=== PATIENT | male | born 2000 | race African-American/Black ===

== ENCOUNTER 2021-09-19 12:06 | Emergency (ER) | payer BC, OTHER ==
[~2021-09-19] VITALS: Ht 167.6 cm; Wt 59.0 kg
[2021-09-19 12:55] VITALS: BP 117/80
[2021-09-19] MEDS ORDERED: DOXYCYCLINE HYCLATE 100 MG TABLET PO ONE (13:45)
[2021-09-19] MEDS ORDERED: KETOROLAC 30 MG/ML VIAL. IM ONE (13:45)
[2021-09-19] MEDS ORDERED: cefTRIAXone IM 500 MG VIAL. IM ONE (13:45)
[2021-09-19 14:02] LABS: BACTERIA,URINE 0 /HPF (0-FEW); RBC,URINE 0 /HPF (0-2); WBC,URINE TNTC /HPF (0-4)
--- NOTE | 2021-09-19 14:16 | PHYS DOC ---
Past Medical History Past Surgical History: No Surgical History Smoking Status: Never Smoker Alcohol Use: Occasionally Social History Narrative: ecstasy General Adult EDM: Chief Complaint: WRIST PAIN HPI: HPI: Patient is a 21 year old male who presents with painful lump on his right wrist. Patient states the pain is mild to moderate and intermittently radiates proximally towards his elbow. He believes it is a ganglion cyst, as his grandfather had 1 in the past. Additionally, he reports a few day history of urethral discharge. Patient reports he has had 2 sexual partners in the past 6 months. In his most recent relationship, he has not been using barrier contraception and is concerned for STI. Patient denies genital rash, hematuria and testicular pain. Review of Systems: Review of Systems: ROS negative or noncontributory except as mentioned in HPI. Heart Score: C/O Chest Pain: No Current Medications: Current Medications Medications (Trade) Dose Ordered Sig/Shonna Start Time Stop Time Status Last Admin Dose Admin Ceftriaxone Sodium (Rocephin Im) 500 mg 1X ONCE 09/19/21 13:45 09/19/21 13:46 DC 09/19/21 13:56 500 MG Doxycycline Hyclate (Vibra-Tab) 100 mg 1X ONCE 09/19/21 13:45 09/19/21 13:46 DC 09/19/21 13:55 100 MG Ketorolac Tromethamine (Toradol 30mg Vial) 30 mg 1X ONCE 09/19/21 13:45 09/19/21 13:46 DC 09/19/21 13:56 30 MG Allergies: Allergies: Allergies Coded Allergies Type Severity Reaction Last Updated Verified No Known Drug Allergies 09/19/21 No Physical Exam: PE: Constitutional: Well developed, well nourished, no acute distress, non-toxic appearance. HENT: Normocephalic, atraumatic, bilateral external ears normal, oropharynx moist, no oral exudates, nose normal. Eyes: EOMI, conjunctiva normal, no discharge. Neck: Normal range of motion, no stridor. Skin: Warm, dry, no erythema, no rash. Back: No tenderness, no CVA tenderness. Extremities: Well-circumscribed, nonmobile firm lesion consistent with ganglion cyst noted to the dorsal aspect of the right wrist, cyst moves with wrist flexion and extension. Extremities otherwise no cyanosis, no clubbing, active ROM intact, no edema. Neurologic: Alert and oriented x4, normal motor function, normal sensory function, no focal deficits noted. Current Patient Data: Labs: Laboratory Tests Test 09/19/21 13:05 09/19/21 13:41 Urine Collection Type Unknown Urine Color (Auto) Yellow Urine Turbidity Hazy Urine pH (Auto) 6.5 (<5.0-8.0) Urine Specific [place] 1.032 (1.000-1.030) Urine Protein (Auto) 100 mg/dL (Negative) Urine Glucose (Auto)(UA) Negative mg/dL (Negative) Urine Ketones (Auto) Trace mg/dL (Negative) Urine Blood (Auto) Small (Negative) Urine Nitrite Negative (Negative) Urine Bilirubin (Auto) Negative (Negative) Urine Urobilinogen (Auto) 2 mg/dL (Normal) Urine Leukocyte Esterase (Auto) Large (Negative) Urine RBC 0 /HPF (0-2) Urine WBC Tntc /HPF (0-4) Urine Bacteria 0 /HPF (0-FEW) Urine Mucus Marked /LPF Treponema pallidum Antibody Nonreactive (Nonreactive) Vital Signs: Vital Signs Date Time Temp Pulse Resp B/P (MAP) Pulse Ox O2 Delivery O2 Flow Rate FiO2 09/19/21 12:55 98.0 82 16 117/80 (92) 100 Room Air 98.0 Course & Med Decision Making: Course & Med Decision Making Pertinent Labs and Imaging studies reviewed. (See chart for details) [employer] Disclaimer: [employer] Disclaimer: This electronic medical record was generated, in whole or in part, using a voice recognition dictation system. Departure Departure Impression: Primary Impression: Synovial cyst of right wrist Additional Impression: Sexually transmitted infection Disposition: HOME / SELF CARE / HOMELESS Condition: STABLE Referrals: NO PCP (PCP) DONYA KULKARNI Jr. DO Patient Instructions: Ganglion Cyst, Safe Sex Additional Instructions: EMERGENCY DEPARTMENT GENERAL DISCHARGE INSTRUCTIONS Thank you for coming to [facility] Emergency Department (ED) today and trusting us with you care. We trust that you had a positive experience in our Emergency Department. If you wish to speak to the department management, you may call the director at . YOUR FOLLOW UP INSTRUCTIONS ARE FOLLOWS: 1. Follow up with your primary care doctor. If you do not have a primary doctor, please ask for a resource list of physicians or clinics that may be able to assist you with follow up care. 2. The emergency provider has interpreted your imaging studies, if any were ordered. The radiology digital content specialist also reviewed them. If there is a change in the findings, you will be notified in 48 hours when at all possible. 3. If a lab test or culture has been done, your results will be reviewed and you will be notified if you need a change in treatment. 4. Follow instructions verbalized to you and refer to the printouts if needed. ADDITIONAL INSTRUCTIONS AND INFORMATION: 1. Your care today has been supervised by a physician who is specially trained in emergency care. Many problems require more than one evaluation for a complete diagnosis and treatment. We recommend that you schedule your follow up appointment as recommended to ensure complete treatment of you illness or injury. If you are unable to obtain follow up care and continue to have a problem, or if your condition worsens, we recommend that you return to the ED. 2. We are not able to safely determine your condition over the phone nor are we able to give sound medical advice over the phone. For these safety reasons, if you call for medical advice we will ask you to come to the ED for further evaluation. 3. If you have any questions regarding these discharge instructions please call the ED at . SAFETY INFORMATION: In the interest of safety, wellness, and injury prevention; we encourage you to wear your seat belt, if you smoke; quite smoking, and we encourage family to use a protective helmet for bicycling and other sporting events that present an increased risk for head injury. IF YOUR SYMPTOMS WORSEN OR NEW SYMPTOMS DEVELOP, OR YOU HAVE CONCERNS ABOUT YOUR CONDITION; OR IF YOUR CONDITION WORSENS WHILE YOU ARE WAITING FOR YOUR FOLLOW UP APPOINTMENT; EITHER CONTACT YOUR PRIMARY CARE DOCTOR, THE PHYSICIAN WHOSE NAME AND NUMBER YOU WERE GIVEN, OR RETURN TO THE ED IMMEDIATELY. Scripts Doxycycline Hyclate (DOXYCYCLINE HYCLATE) 100 Mg Capsule 1 CAP PO BID, #[id number] CAP Prov: TIFFANY WU 09/19/21 TIFFANY WU September 19, 2021 14:16
[2021-09-19] MEDS ORDERED: DOXY100C3 PO (14:31)
== END 2021-09-19 14:38 | disposition home or self-care (01) ==
LOC: ER 12:06
DX: M71.331 Other bursal cyst, right wrist (principal); A64 Unspecified sexually transmitted disease
CPT/HCPCS: 36415; 81001; 86592; 87086; 87491; 87591; 96372; 99284; J0696; J1885